=== PATIENT | female | born 1960 | race Caucasian/White ===

== ENCOUNTER 2017-11-07 08:53 | Emergency (ER) | payer BC, OTHER ==
[2017-11-07 09:05] VITALS: BP 128/75
--- NOTE | 2017-11-07 09:18 | UC ---
Upper Extremity HPI - HPI Summary HPI Summary: Patient tripped and fell landing on the left hand, pain over the 5th met, small area of swelling noted. - History of Current Complaint Chief Complaint: UCUpperExtremity Stated Complaint: FINGER INJURY Time Seen by Provider: 11/07/17 09:11 Hx Obtained From: Patient ?: No Onset/Duration: Sudden Onset, Lasting Days Severity Initially: Moderate Severity Currently: Moderate Pain Intensity: 9 Location Of Pain: Is Discrete @ - left 5th met Character: Dull, Aching Aggravating Factor(s): Movement Alleviating Factor(s): Ice Associated Signs And Symptoms: Positive: Swelling - Allergies/Home Medications Allergies/Adverse Reactions: Allergies Allergy/AdvReac Type Severity Reaction Status Date / Time No Known Allergies Allergy Verified 11/07/17 09:05 Home Medications: Home Medications NK [No Home Medications Reported] 11/07/17 [History Confirmed 11/07/17] PMH/Surg Hx/FS Hx/Imm Hx Previously Healthy: Yes - Surgical History Surgical History: Yes Surgery Procedure, Year, and Place: hernia repair as an infant - Family History Known Family History: Positive: Hypertension - Social History Alcohol Use: Daily Substance Use Type: None Smoking Status (MU): Never Smoked Tobacco Review of Systems Constitutional: Negative Skin: Negative Eyes: Negative ENT: Negative Respiratory: Negative Cardiovascular: Negative Gastrointestinal: Negative Genitourinary: Negative Motor: Negative Neurovascular: Negative Musculoskeletal: Arthralgia, Edema, Myalgia Neurological: Negative Psychological: Negative Is Patient Immunocompromised?: No All Other Systems Reviewed And Are Negative: Yes Physical Exam Triage Information Reviewed: Yes Appearance: Well-Appearing, Well-Nourished, Pain Distress Vital Signs: Initial Vital Signs Temp 97.9 F 11/07/17 09:01 Pulse 70 11/07/17 09:01 Resp 18 11/07/17 09:01 BP 128/75 11/07/17 09:01 Pulse Ox 98 11/07/17 09:01 Vital Signs Reviewed: Yes Eye Exam: Normal ENT Exam: Normal Dental Exam: Normal Neck exam: Normal Respiratory Exam: Normal Cardiovascular Exam: Normal Abdominal Exam: Normal Bowel Sounds: Positive: Present Musculoskeletal: Positive: 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, ROM Limited @ - in 5th finger, Edema @ - over the 5th met Neurological Exam: Normal Psychological Exam: Normal Skin Exam: Normal Diagnostics - Radiology No standard instances Xray Interpretation: Positive (See Comments) Radiology Interpretation Completed By: ED Physician Upper Extremity Course/Dx - Course Course Of Treatment: hx obtained, exam performed ,meds reviewed, xray obtained, obvious fracture, reviewed with Dr Jean Baptiste, splint applied, referred to ortho - Differential Dx/Diagnosis Differential Diagnosis/HQI/PQRI: Contusion, Fracture (Closed), Strain, Sprain Provider Diagnoses: left boxer fracture Discharge - Sign-Out/Discharge Documenting (check all that apply): Discharge - Discharge Plan Condition: Stable Disposition: HOME Patient Education Materials: Boxer Fracture (ED) Referrals: Elliot SLOAN,Farnaz Waite [Primary Care Provider] - Tonny Yanez MD [Medical Doctor] - Additional Instructions: 1. keep the splint in place 2. Elevate the arm at rest to prevent dependant swelling 3. Ibuprofen or tylenol for pain. 4. Follow up with the orthopedic this week. - Billing Disposition and Condition Condition: STABLE Disposition: HOME
--- NOTE | 2017-11-07 10:09 | RAD ---
INDICATION: Pain overlying the fifth metacarpal after a fall COMPARISON: None. TECHNIQUE: 4 views of the left hand were obtained. FINDINGS: There is a slightly displaced oblique fracture involving the metaphysis of the left fifth metacarpal extending from the ulnar cortex proximally to the radial margin of the cortex distally. The remaining visualized bones are intact and appropriately aligned. IMPRESSION: Minimally displaced spiral fracture of the left fifth metacarpal.
== END 2017-11-07 09:56 | disposition home or self-care (01) ==
LOC: UCEAST 08:53
DX: S62.307A Unspecified fracture of fifth metacarpal bone, left hand, initial encounter for closed fracture (principal); W01.0XXA Fall on same level from slipping, tripping and stumbling without subsequent striking against object, initial encounter; Y93.01 Activity, walking, marching and hiking; Y92.9 Unspecified place or not applicable
CPT/HCPCS: 99211; G0463

== ENCOUNTER 2018-02-25 11:30 | Emergency (ER) | payer BC, OTHER ==
--- NOTE | 2018-02-25 13:31 | RAD ---
INDICATION: Right knee pain. TECHNIQUE: 4 views of the right knee were obtained. FINDINGS: The bones are in normal alignment. No joint effusion or fracture is seen. Joint spaces appear maintained. IMPRESSION: NO EVIDENCE FOR FRACTURE.
[2018-02-25 14:09] VITALS: BP 122/83
--- NOTE | 2018-02-25 14:11 | UC ---
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 NO HELP WITH ICE OR IBUPROFEN. ABLE TO AMBULATE BUT WITH DISCOMFORT. - History of Current Complaint Chief Complaint: UCLowerExtremity Stated Complaint: KNEE INJURY Time Seen by Provider: 02/25/18 13:04 Hx Obtained From: Patient Onset/Duration: Sudden Onset, Lasting Days - 1 DAY, Still Present Severity Initially: Moderate Severity Currently: Moderate Pain Intensity: 5 Pain Scale Used: 0-10 Numeric Character: Sharp, Aching Aggravating Factor(s): Movement, Weight Bearing Alleviating Factor(s): Rest Associated Signs And Symptoms: Positive: Swelling - Allergies/Home Medications Allergies/Adverse Reactions: Allergies Allergy/AdvReac Type Severity Reaction Status Date / Time No Known Allergies Allergy Verified 02/25/18 11:50 Home Medications: Home Medications Ibuprofen TAB* [Motrin TAB* 400 MG] 400 mg PO ONCE 02/25/18 [History Confirmed 02/25/18] Loratadine 10 mg PO BEDTIME 02/25/18 [History Confirmed 02/25/18] PMH/Surg Hx/FS Hx/Imm Hx Previously Healthy: Yes - Surgical History Surgical History: Yes Surgery Procedure, Year, and Place: hernia repair as an . R carpal tunnel repair - 2012 - Family History Known Family History: Positive: Hypertension - Social History Alcohol Use: Daily Alcohol Amount: 1 drink/ day Substance Use Type: None Smoking Status (MU): Never Smoked Tobacco Review of Systems Constitutional: Negative Respiratory: Negative Cardiovascular: Negative Gastrointestinal: Negative Musculoskeletal: Arthralgia, Decreased ROM All Other Systems Reviewed And Are Negative: Yes Physical Exam Triage Information Reviewed: Yes Appearance: Well-Appearing, No Pain Distress, Well-Nourished Vital Signs: Initial Vital Signs Temp 97.8 F 02/25/18 11:51 Pulse 84 02/25/18 11:51 Resp 16 02/25/18 11:51 BP 120/76 02/25/18 11:51 Pulse Ox 98 02/25/18 11:51 Vital Signs Reviewed: Yes Eyes: Positive: Conjunctiva Clear ENT: Positive: Hearing grossly normal Neck: Positive: Supple Respiratory: Positive: No respiratory distress, No accessory muscle use Cardiovascular: Positive: Pulses Normal Abdomen Description: Positive: Soft Musculoskeletal: Positive: ROM Limited @ - FLEXION RIGHT KNEE, Edema @ - SLIGHT RIGHT KNEE SWELLING ANTERIORLY, Other: - RIGHT KNEE: NO JOINT LINE TENDERNESS OR TENDERNESS OVER ANY BONY PROMINENCES. MCL AND LCL INTACT TO STRESS TESTING. NEG LACHMANS. NEG DRAWERS SIGNS. NEG MCMURRAYS. NEG PATELLAR APPREHENSION TEST. NO TENDERNESS OVER PATELLAR LIGAMENT OR QUADRICEPS TENDON. DECREASED ROM (FLEXION). Neurological: Positive: Alert Psychological: Positive: Age Appropriate Behavior Skin: Negative: rashes Diagnostics - Radiology RIGHT KNEE XRAY Xray Interpretation: No Acute Changes Radiology Interpretation Completed By: Radiologist Knee Pain Course/Dx - Differential Dx/Diagnosis Provider Diagnoses: RIGHT KNEE SPRAIN Discharge - Sign-Out/Discharge Documenting (check all that apply): Patient Departure - Discharge Plan Condition: Stable Disposition: HOME Patient Education Materials: Knee Sprain (ED) Referrals: Elliot SLOAN,Farnaz Waite [Primary Care Provider] - If Needed Additional Instructions: X-RAY TODAY UNREMARKABLE FOR FRACTURE OR DISLOCATION. YOUR SYMPTOMS SHOULD IMPROVE SIGNIFICANTLY OVER THE NEXT 1-2 WEEKS. IF YOU DO NOT IMPROVE EXPECTED FOLLOW-UP WITH YOUR PCP. OTC IBUPROFEN OR ALEVE NEEDED FOR DISCOMFORT. REST, ICE, COMPRESS, ELEVATE. RANJAN WRAP FOR COMPRESSION AND SUPPORT. - Billing Disposition and Condition Condition: STABLE Disposition: Home
== END 2018-02-25 14:15 | disposition home or self-care (01) ==
LOC: UCEAST 11:30
DX: S83.91XA Sprain of unspecified site of right knee, initial encounter (principal); X58.XXXA Exposure to other specified factors, initial encounter; Y93.9 Activity, unspecified; Y99.9 Unspecified external cause status
CPT/HCPCS: 99212; G0463

== ENCOUNTER 2018-08-09 10:23 | Emergency (ER) | payer BC, OTHER ==
[2018-08-09 10:29] VITALS: BP 119/82
--- NOTE | 2018-08-09 14:40 | UC ---
Knee Pain HPI - HPI Summary HPI Summary: PT SLIPPED ON THE ICE THIS MORNING AND TWISTED AND FELL ON HER LEFT KNEE. - History of Current Complaint Chief Complaint: UCLowerExtremity Stated Complaint: L KNEE INJURY Time Seen by Provider: 08/09/18 10:36 Hx Obtained From: Patient Onset/Duration: Sudden Onset, Lasting Hours, Still Present Severity Initially: Mild Severity Currently: Mild Pain Intensity: 1 Pain Scale Used: 0-10 Numeric Character: Sharp Aggravating Factor(s): Movement Alleviating Factor(s): Rest Associated Signs And Symptoms: Negative: Swelling, Redness, Bruising Able to Bear Weight: Yes - Allergies/Home Medications Allergies/Adverse Reactions: Allergies Allergy/AdvReac Type Severity Reaction Status Date / Time No Known Allergies Allergy Verified 08/09/18 10:30 PMH/Surg Hx/FS Hx/Imm Hx Previously Healthy: Yes - Surgical History Surgical History: Yes Surgery Procedure, Year, and Place: hernia repair as an . R carpal tunnel repair - 2012 - Family History Known Family History: Positive: Hypertension - Social History Alcohol Use: Daily Alcohol Amount: 1 drink/ day Substance Use Type: None Smoking Status (MU): Never Smoked Tobacco Review of Systems All Other Systems Reviewed And Are Negative: Yes Constitutional: Positive: Negative Skin: Positive: Bruising Respiratory: Positive: Negative Cardiovascular: Positive: Negative Gastrointestinal: Positive: Negative Musculoskeletal: Positive: Arthralgia, Decreased ROM Physical Exam Triage Information Reviewed: Yes Appearance: Well-Appearing, No Pain Distress, Well-Nourished Vital Signs: Initial Vital Signs Temp 98.6 F 08/09/18 10:27 Pulse 81 08/09/18 10:27 Resp 17 08/09/18 10:27 BP 119/82 08/09/18 10:27 Pulse Ox 98 08/09/18 10:27 Vital Signs Reviewed: Yes Eyes: Positive: Conjunctiva Clear ENT: Positive: Hearing grossly normal Neck: Positive: Supple Respiratory: Positive: No respiratory distress, No accessory muscle use Cardiovascular: Positive: Pulses Normal Abdomen Description: Positive: Soft Musculoskeletal: Positive: No Edema, ROM Limited @ - LEFT KNEE, Other: - LEFT KNEE: NO JOINT LINE TENDERNESS OR TENDERNESS OVER ANY BONY PROMINENCES. MCL AND LCL INTACT TO STRESS TESTING. NEG LACHMANS. NEG DRAWERS SIGNS. NEG MCMURRAYS. NEG PATELLAR APPREHENSION TEST. NO TENDERNESS OVER PATELLAR LIGAMENT OR QUADRICEPS TENDON. DECREASED ROM (FLEXION). Neurological: Positive: Alert Psychological: Positive: Age Appropriate Behavior Skin: Positive: Other - BRUISING LEFT ANTERIOR KNEE Diagnostics - Radiology LEFT KNEE XRAY Radiology Interpretation Completed By: Radiologist Summary of Radiographic Findings: UNREMARKABLE Knee Pain Course/Dx - Differential Dx/Diagnosis Provider Diagnosis: Left knee sprain Discharge - Sign-Out/Discharge Documenting (check all that apply): Patient Departure All imaging exams completed and their final reports reviewed: Yes - Discharge Plan Condition: Stable Disposition: HOME Patient Education Materials: Knee Sprain (ED) Referrals: Elliot SLOAN,Farnaz Waite [Primary Care Provider] - If Needed Additional Instructions: XRAY TODAY NEGATIVE FOR FRACTURE OR DISLOCATION. YOUR SYMPTOMS SHOULD IMPROVE SIGNIFICANTLY OVER THE NEXT 1-2 WEEKS. IF YOU DO NOT IMPROVE EXPECTED FOLLOW- UP WITH YOUR PCP OR ORTHO. YOU MAY BENEFIT FROM REPEAT/MORE ADVANCED IMAGING AT THAT TIME. OTC IBUPROFEN OR ALEVE NEEDED FOR DISCOMFORT. REST, ICE, COMPRESS , ELEVATE. RANJAN WRAP FOR SYMPTOM RELIEF. BE SURE TO GO THROUGH SLOW RANGE OF MOTION AND STRETCHING EXERCISES DAILY YOU ARE ABLE TO PREVENT STIFFENING UP AND MAKING THE DISCOMFORT WORSE. - Billing Disposition and Condition Condition: STABLE Disposition: Home
== END 2018-08-09 12:00 | disposition home or self-care (01) ==
LOC: UCEAST 10:23
DX: S83.8X2A Sprain of other specified parts of left knee, initial encounter (principal); W01.0XXA Fall on same level from slipping, tripping and stumbling without subsequent striking against object, initial encounter; Y92.9 Unspecified place or not applicable
CPT/HCPCS: 99212; G0463